=== PATIENT | female | born 1995 | race American Indian/Alaskan Native ===

== ENCOUNTER 2017-11-04 11:23 | Emergency (ER) | payer SELFPAY | END 2017-11-04 12:12 | disposition left against medical advice (07) | LOC: ED 11:23 | DX: R51 Headache (principal); Z53.21 Procedure and treatment not carried out due to patient leaving prior to being seen by health care provider ==

== ENCOUNTER 2017-12-16 09:13 | Emergency (ER) | payer SELFPAY ==
[2017-12-16 09:20] VITALS: BP 141/86
== END 2017-12-16 09:20 | disposition left against medical advice (07) ==
LOC: ED 09:13
DX: R07.89 Other chest pain (principal); Z53.21 Procedure and treatment not carried out due to patient leaving prior to being seen by health care provider; F17.200 Nicotine dependence, unspecified, uncomplicated; F12.90 Cannabis use, unspecified, uncomplicated
CPT/HCPCS: 93005; 93010

== ENCOUNTER 2018-01-08 21:30 | Emergency (ER) | payer SELFPAY ==
[2018-01-08] MEDS ORDERED: TYLENOL PO ONE (22:01)
[2018-01-08] MEDS ORDERED: TYLENOL ONE (22:03)
[2018-01-09] MEDS ORDERED: MOTRIN PO ONE (02:13)
--- NOTE | 2018-01-09 02:45 | Emergency Department Report ---
ED General Adult HPI - General Chief complaint: Pain General Stated complaint: FLU SYMPTOMS Time Seen by Provider: 01/09/18 02:13 Source: patient Mode of arrival: Ambulatory Limitations: No Limitations - History of Present Illness Initial comments: 22-year-old [place] female states that on Friday she started to have a sore throat and by Friday she had a fever. Patient complains of loss of appetite and nausea and generalized body aches for 5 days. Patient reports that she's taken Tylenol Cold and flu DayQuil and Mucinex. She did vomit 2 days ago. She was given Tylenol in triage which she reports that helped with her headache. She admits to just a little cough a little runny nose and a little nasal congestion at night. She has no past medical history currently takes no medications on a daily basis and has no known drug allergies. -: days(s) (5) Severity scale (0 -10): 8 Quality: aching Improves with: medication Worsens with: none Associated Symptoms: cough, fever/chills (objective fever), headaches, loss of appetite - Related Data Previous Rx's Medication Instructions Recorded Last Taken Type Ibuprofen [Motrin 600 MG tab] 600 mg PO Q8H #15 tablet 01/09/18 Unknown Rx Allergies Allergy/AdvReac Type Severity Reaction Status Date / Time No Known Allergies Allergy Unverified 12/16/17 09:18 ED Review of Systems ROS: Stated complaint: FLU SYMPTOMS Other details as noted in HPI Comment: All other systems reviewed and negative ENT: throat pain, congestion (little nasal ) Respiratory: cough (little cough) Endocrine: other (decreased appetite) Gastrointestinal: nausea Genitourinary: denies: urgency, dysuria, discharge Musculoskeletal: myalgia. denies: back pain, joint swelling, arthralgia Skin: denies: rash, lesions Neurological: denies: headache, weakness, paresthesias Psychiatric: denies: anxiety, depression Hematological/Lymphatic: denies: easy bleeding, easy bruising ED Past Medical Hx - Past Medical History Previous Medical History?: No - Surgical History Past Surgical History?: No - Social History Smoking Status: Never Smoker Substance Use Type: Marijuana - Medications Home Medications: Home Medications Medication Instructions Recorded Confirmed Last Taken Type Ibuprofen [Motrin 600 MG tab] 600 mg PO Q8H #15 tablet 01/09/18 Unknown Rx ED Physical Exam - General Limitations: No Limitations General appearance: alert, in no apparent distress - Head Head exam: Present: atraumatic, normocephalic - Eye Eye exam: Present: EOMI - ENT ENT exam: Present: mucous membranes moist - Expanded ENT Exam Expanded Throat exam: Positive: tonsillar erythema (mild). Negative: tonsillomegaly, tonsillar exudate - Neck Neck exam: Present: full ROM. Absent: tenderness, lymphadenopathy - Respiratory Respiratory exam: Present: normal lung sounds bilaterally. Absent: respiratory distress - Cardiovascular Cardiovascular Exam: Present: regular rate, normal rhythm. Absent: systolic murmur, diastolic murmur, rubs, gallop - GI/Abdominal GI/Abdominal exam: Present: soft, normal bowel sounds ED Course Vital Signs 01/08/18 01/09/18 21:53 02:16 Temperature 99.7 F H 98.6 F Pulse Rate 105 H 86 Respiratory 16 16 Rate Blood Pressure 125/76 Blood Pressure 113/69 [113/69] O2 Sat by Pulse 99 99 Oximetry ED Medical Decision Making - Medical Decision Making Patient has been evaluated by this provider fast track. Patient was given Tylenol in triage and ibuprofen in fast track. Rapid strep rapid flu sent down with all negative. Patient was given apple juice and applesauce. Patient be discharged home with instructions for supportive measures. Ibuprofen for body aches and sore throat. Drink plenty of fluids and advance diet as tolerated. Please follow up with her primary care provider if symptoms persist or gets worse. Critical care attestation.: If time is entered above; I have spent that time in minutes in the direct care of this critically ill patient, excluding procedure time. ED Disposition Clinical Impression: Viral syndrome Disposition: DC-01 TO HOME OR SELFCARE Is pt being admited?: No Does the pt Need Aspirin: No Condition: Stable Instructions: Viral Syndrome (ED) Additional Instructions: Please take ibuprofen for pain management. Please increase your fluid intake and advance your diet as tolerated. If her symptoms persist or gets worse please follow-up with a primary care provider. All U cultures were negative no strep no flu. Prescriptions: Ibuprofen [Motrin 600 MG tab] 600 mg PO Q8H #15 tablet Referrals: PRIMARY CARE, [Primary Care Provider] - 3-5 Days [facility] [Provider Group] - 3-5 Days Forms: Work/School Release Form(ED)
[2018-01-09 03:34] VITALS: BP 118/70
== END 2018-01-09 03:30 | disposition home or self-care (01) ==
LOC: ED 21:30
DX: B34.9 Viral infection, unspecified (principal); F12.10 Cannabis abuse, uncomplicated
CPT/HCPCS: 87116; 87400; 87430; 99283